=== PATIENT | female | born 1965 | race Caucasian/White ===

== ENCOUNTER 2018-06-17 23:46 | Emergency (ER) | payer OTHER ==
[2018-06-18] MEDS ORDERED: DUONEB 0.5-3 MG/3 ml Neb IH ONE ×2 (00:24→01:05)
--- NOTE | 2018-06-18 00:30 | ERPHSYRPT ---
- History of Present Illness Time Seen by Provider: 06/18/18 00:19 Source: patient Exam Limitations: no limitations Physician History: 53-year-old white female with history of fibromyalgia, neuropathy, peptic ulcers arrives with complaint of shortness of breath cough symptoms going on for 2 weeks worse the last couple of days denies any chest pain Patient states the cough is worse at night. Past medical history includes fibromyalgia, neuropathy, peptic ulcers Past surgical history includes cholecystectomy, , EGD Social history patient denies tobacco alcohol or illicit drug use Timing/Duration: week(s) (2 weeks) Activities at Onset: none Severity of Dyspnea-Max: mild Severity of Dyspnea-Current: mild Possible Cause: no prior episodes Modifying Factors: Improves With: nothing Associated Symptoms: constant, cough, wheezing, No intermittent, No anxiety, No chest pain/discomfort, No edema, No fever, No insomnia, No loss of appetite, No lightheadedness, No weakness, No ankle swelling, No chills, No hemoptysis, No calf pain, No dizziness, No heaviness, No heart racing, No lightheadedness, No leg swelling, No muscle spasms feet, No muscle spasms hands, No painful breathing, No productive cough, No sweating, No tightness, No tingling face International travel in last 2 weeks: No Allergies/Adverse Reactions: NSAIDS (Non-Steroidal Anti-Inflamma Allergy (Verified 06/18/18 00:56) Home Medications: Furosemide 40 mg [Lasix 40 MG] 40 mg PO DAILY 08/18/15 [History] Levothyroxine Sodium 75 Mcg [Synthroid 75 Mcg] 75 mcg PO DAILY 08/18/15 [ History] Lisdexamfetamine Dimesylate [Vyvanse] 50 mg PO DAILY 08/18/15 [History] Lisinopril 10 mg [Zestril 10 MG] 10 mg PO HS 08/18/15 [History] Tizanidine HCl 4 mg [Zanaflex 4 MG] 8 mg PO HS 08/18/15 [History] Oxycodone HCl/Acetaminophen [Percocet 7.5-325 mg Tablet] 1 each PO Q4-6HPRN PRN 10/10/15 [History] Acetaminophen 500 mg [Tylenol Extra Strength 500 mg] 1,000 mg PO Q4H 06/18 [History] Alprazolam [Xanax] 1 mg PO TID 06/18/18 [History] Hx Tetanus, Diphtheria Vaccination/Date Given: Yes Hx Influenza Vaccination/Date Given: No Hx Pneumococcal Vaccination/Date Given: No - Review of Systems Constitutional: No Symptoms, No Fever, No Chills Ears, Nose, & Throat: No Symptoms Respiratory: Cough, Wheezing, No Dyspnea Cardiac: No Chest Pain, No Edema, No Syncope Abdominal/Gastrointestinal: No Abdominal Pain, No Nausea, No Vomiting, No Diarrhea Genitourinary Symptoms: No Dysuria Musculoskeletal: No Back Pain, No Neck Pain Skin: No Rash Neurological: No Dizziness, No Focal Weakness, No Sensory Changes Psychological: No Symptoms Endocrine: No Symptoms All Other Systems: Reviewed and Negative (in he starts telling me thshe) - Past Medical History Pertinent Past Medical History: Yes (fibrolmyalgia, neuropathy, peptic ulcers) Neurological History: No Pertinent History ENT History: No Pertinent History Cardiac History: No Pertinent History Respiratory History: No Pertinent History Endocrine Medical History: No Pertinent History Musculoskeletal History: No Pertinent History GI Medical History: Ulcer History: No Pertinent History Psycho-Social History: No Pertinent History Female Reproductive Disorders: No Pertinent History Other Medical History: ulcer - Past Surgical History Past Surgical History: Yes Neuro Surgical History: No Pertinent History Cardiac: No Pertinent History Respiratory: No Pertinent History Gastrointestinal: Cholecystectomy Genitourinary: No Pertinent History Musculoskeletal: No Pertinent History Female Surgical History: Section Other Surgical History: EGD X [address] King Eduardo - Social History Smoking Status: Never smoker Exposure to second hand smoke: No Drug Use: none Patient Lives Alone: No - Nursing Vital Signs Nursing Vital Signs: Initial Vital Signs Temperature 98.5 F 06/18/18 00:04 Pulse Rate 96 H 06/18/18 00:04 Respiratory Rate 18 06/18/18 00:04 Blood Pressure 134/92 06/18/18 00:04 O2 Sat by Pulse Oximetry 96 06/18/18 00:04 Pain Scale Pain Intensity 0 - Physical Exam General Appearance: mild distress, alert Eye Exam: PERRL/EOMI Neck Exam: normal inspection, supple Respiratory Exam: diminished breath sounds, wheezing Cardiovascular/Chest Exam: normal heart sounds, regular rate/rhythm Abdominal/Gastrointestinal Exam: soft, No tenderness, No distention, No mass Extremity Exam: non-tender, normal range of motion, normal inspection, no calf tenderness, no pedal edema Neurologic Exam: alert, oriented x 3, cooperative, 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, sensation nml, No motor deficits Skin Exam: normal color, warm, No dry SpO2 Interpretation: normal (96%) SpO2: 96 - Course Nursing assessment & vital signs reviewed: Yes EKG Interpreted by Me: RATE (92 bpm), NORMAL AXIS, Other (EKG: Sinus rhythm, 92 bpm, normal axis, no acute ST or T wave changes) - Radiology Exams Chest X-ray Interpretation: Interpreted by me (Chest x-ray: No acute disease process) Ordered Tests: Active Orders 24 hr Category Date Time Status Clinical Resource Coordinator STAT Care 06/18/18 00:26 Active EKG-ER Only STAT Care 06/18/18 00:24 Active IV Insertion STAT Care 06/18/18 00:24 Active Pulse Oximetry (ED) STAT Care 06/18/18 00:24 Active CHEST 1 VIEW (PORTABLE) Stat Exams 06/18/18 00:26 Taken CBC W DIFF Stat Lab 06/18/18 00:45 Completed CMP Stat Lab 06/18/18 00:45 Completed HCG QUALITATIVE,SERUM Stat Lab 06/18/18 00:45 Completed NT PRO BNP Stat Lab 06/18/18 00:45 Completed TROPONIN Q3H Lab 06/18/18 00:45 Completed VENOUS BLOOD GAS Stat Lab 06/18/18 00:50 Completed Respiratory Therapy Assessment DAILY RT 06/18/18 01:06 Completed Medication Summary Discontinued Medications Generic Name Dose Route Start Last Admin Trade Name Mikq PRN Reason Stop Dose Admin Albuterol Sulfate Confirm 06/18/18 02:55 Ventolin Hfa Mdi Administered 06/18/18 02:56 Dose 8 gm IH .STK-MED ONE Albuterol/Ipratropium 3 ml 06/18/18 00:24 06/18/18 01:08 Duoneb 0.5-3 Mg/3 Ml Neb IH 06/18/18 00:25 3 ml STAT ONE Administration Albuterol/Ipratropium Confirm 06/18/18 01:05 Duoneb 0.5-3 Mg/3 Ml Neb Administered 06/18/18 01:06 Dose 3 ml IH .STK-MED ONE Ceftriaxone Sodium/Dextrose Confirm 06/18/18 03:09 Rocephin 1 Gm-D5w 50 Ml Bag Administered 06/18/18 03:10 Dose 1 g in 50 mls @ ud IV .STK-MED ONE Methylprednisolone Sodium Succinate Confirm 06/18/18 03:09 Solu-Medrol 125 Mg Administered 06/18/18 03:10 Dose 125 mg .ROUTE .STK-MED ONE Lab/Rad Data: Laboratory Result Diagrams 06/18/18 00:45 06/18/18 00:45 Laboratory Results 06/18/18 06/18/18 06/18/18 Range/Units 00:50 00:45 00:45 WBC (4.0-10.5) K/mm3 RBC (4.1-5.4) M/mm3 Hgb (12.0-16.0) gm/dl Hct (35-47) % MCV (78-100) fl MCH (26-32) pg MCHC (32-36) g/dl RDW (11.5-14.0) % Plt Count (150-450) K/mm3 MPV (6-9.5) fl Gran % (36.0-66.0) % Eos # (Auto) (0-0.5) Absolute Lymphs (auto) (1.0-4.6) Absolute Monos (auto) (0.0-1.3) Lymphocytes % (24.0-44.0) % Monocytes % (0.0-12.0) % Eosinophils % (0.00-5.0) % Basophils % (0.0-0.4) % Absolute Granulocytes (1.4-6.9) Basophils # (0-0.4) pO2/FiO2 Ratio 21.0 % VBG pH 7.37 (7.32-7.42) VBG pCO2 at Pat Temp 36 L (42-55) mm/Hg VBG pO2 at Pat Temp 61 H (25-40) mm/Hg VBG HCO3 20.8 L (22-28) meq/L VBG O2 Sat ([place]) 94.7 L (95-100) VBG Base Excess -4.0 L (-2.0-2.0) VBG Hemoglobin 10.9 VBG Carboxyhemoglobin 3.1 (0.0-6.9) % T HGB POC Potassium 3.3 L (3.5-5.1) Sodium (137-145) mmol/L Potassium (3.5-5.1) mmol/L Chloride (98-107) mmol/L Carbon Dioxide (22-30) mmol/L Anion Gap (5-15) MEQ/L BUN (7-17) mg/dL Creatinine (0.52-1.04) mg/dL Estimated GFR ML/MIN Glucose (74-106) mg/dL Calcium (8.4-10.2) mg/dL Total Bilirubin (0.2-1.3) mg/dL AST (14-36) U/L ALT (0-35) U/L Alkaline Phosphatase (38-126) U/L Troponin I < 0.012 (0.000-0.034) ng/mL NT-Pro-B Natriuret Pep (0-900) pg/mL Serum Total Protein (6.3-8.2) g/dL Albumin (3.5-5.0) g/dL Serum , Qual NEGATIVE (Negative) 06/18/18 06/18/18 Range/Units 00:45 00:45 WBC 14.6 H (4.0-10.5) K/mm3 RBC 3.47 L (4.1-5.4) M/mm3 Hgb 10.6 L (12.0-16.0) gm/dl Hct 33.3 L (35-47) % MCV 96.0 (78-100) fl MCH 30.5 (26-32) pg MCHC 31.8 L (32-36) g/dl RDW 13.9 (11.5-14.0) % Plt Count 343 (150-450) K/mm3 MPV 8.2 (6-9.5) fl Gran % 92.1 H (36.0-66.0) % Eos # (Auto) 0.01 (0-0.5) Absolute Lymphs (auto) 0.92 L (1.0-4.6) Absolute Monos (auto) 0.20 (0.0-1.3) Lymphocytes % 6.3 L (24.0-44.0) % Monocytes % 1.4 (0.0-12.0) % Eosinophils % 0.1 (0.00-5.0) % Basophils % 0.1 (0.0-0.4) % Absolute Granulocytes 13.47 H (1.4-6.9) Basophils # 0.02 (0-0.4) pO2/FiO2 Ratio % VBG pH (7.32-7.42) VBG pCO2 at Pat Temp (42-55) mm/Hg VBG pO2 at Pat Temp (25-40) mm/Hg VBG HCO3 (22-28) meq/L VBG O2 Sat ([place]) (95-100) VBG Base Excess (-2.0-2.0) VBG Hemoglobin VBG Carboxyhemoglobin (0.0-6.9) % T HGB POC Potassium (3.5-5.1) Sodium 130 L (137-145) mmol/L Potassium 3.5 (3.5-5.1) mmol/L Chloride 96 L (98-107) mmol/L Carbon Dioxide 22 (22-30) mmol/L Anion Gap 15.9 H (5-15) MEQ/L BUN 8 (7-17) mg/dL Creatinine 0.88 (0.52-1.04) mg/dL Estimated GFR > 60.0 ML/MIN Glucose 148 H (74-106) mg/dL Calcium 9.0 (8.4-10.2) mg/dL Total Bilirubin 0.70 (0.2-1.3) mg/dL AST 29 (14-36) U/L ALT 32 (0-35) U/L Alkaline Phosphatase 79 (38-126) U/L Troponin I (0.000-0.034) ng/mL NT-Pro-B Natriuret Pep 178 (0-900) pg/mL Serum Total Protein 7.7 (6.3-8.2) g/dL Albumin 4.4 (3.5-5.0) g/dL Serum , Qual (Negative) - Progress Progress: improved Air Movement: fair Progress Note: 06/18/18 04:22 53-year-old white female arrives with complaint of shortness of breath symptoms going on for approximately a week she states she has had a nonproductive cough patient arrived with wheezing. Patient with normal vitals on arrival. Patient was CBC white blood cell 14.6 hemoglobin 10.6 hematocrit 33.3 platelets 343 HCG was negative Chemistry was normal troponin was normal venous blood gases pH 7.37 PCO2 36 Patient was given IV normal saline, IV Solu-Medrol, IV Rocephin she was improved after DuoNeb treatment. Patient was given an albuterol inhaler to take home she was given a prescription for Zithromax and tapering prednisone. These were handwritten secondary to computer was down. Patient was advised to follow-up with her family doctor, Dr. Morgan, She is to return for acute distress or for severe symptoms, Antibiotics given: Yes - Departure Time of Disposition: 04:00 Departure Disposition: Home Clinical Impression: Bronchitis with bronchospasm, Shortness of breath Condition: Fair Critical Care Time: No Referrals: LORIN FREEMAN [Primary Care Provider] -
[2018-06-18 00:37] VITALS: BP 112/93
[2018-06-18 00:49] LABS: BASOPHIL % 0.1 % (0.0-0.4); Basophil (Absolute #) 0.02 (0-0.4); Eosinophil % 0.1 % (0.00-5.0); Eosinophil (Absolute #) 0.01 (0-0.5); Granulocyte Absolute (ANC) 13.47 (1.4-6.9); Granulocytes % 92.1 % (36.0-66.0); Hematocrit 33.3 % (35-47); Hemoglobin 10.6 gm/dl (12.0-16.0); Lymphocyte (Absolute #) 0.92 (1.0-4.6); Lymphocytes % 6.3 % (24.0-44.0); Mean Corpuscular Hemoglobin 30.5 pg (26-32); Mean Corpuscular Hgb Concent. 31.8 g/dl (32-36); Mean Platelet Volume 8.2 fl (6-9.5); Monocytes % 1.4 % (0.0-12.0); Platelet Count 343 K/mm3 (150-450); Red Blood Count 3.47 M/mm3 (4.1-5.4); Red Cell Distribution Width 13.9 % (11.5-14.0); White Blood Count 14.6 K/mm3 (4.0-10.5)
[2018-06-18 00:57] LABS: VBG CARBOXYHEMOGLOBIN 3.1 % T HGB (0.0-6.9); VBG HCO3- 20.8 meq/L (22-28); VBG HEMOGLOBIN 10.9; VBG O2 SATURATION 94.7 (95-100); VBG POTASSIUM 3.3 (3.5-5.1); VBG pH 7.37 (7.32-7.42)
[2018-06-18 01:06] VITALS: O2SAT 96
[2018-06-18 01:15] VITALS: PULSE 91
[2018-06-18 01:16] LABS: ALBUMIN 4.4 g/dL (3.5-5.0); ALKALINE PHOSPHATASE 79 U/L (38-126); ANION GAP 15.9 MEQ/L (5-15); BLOOD UREA NITROGEN 8 mg/dL (7-17); CHLORIDE 96 mmol/L (98-107); Carbon Dioxide 22 mmol/L (22-30); Creatinine 1 0.88 mg/dL (0.52-1.04); Glucose 148 mg/dL (74-106); NT PRO BNP 178 pg/mL (0-900); Potassium 3.5 mmol/L (3.5-5.1); SGOT/AST 29 U/L (14-36); SGPT/ALT 32 U/L (0-35); SODIUM 130 mmol/L (137-145); Total Protein 7.7 g/dL (6.3-8.2)
[2018-06-18] MEDS ORDERED: Ventolin Hfa MDI IH ONE (02:55)
[2018-06-18] MEDS ORDERED: solu-MEDROL 125 MG ONE (03:09)
[2018-06-18] MEDS ORDERED: ROCEPHIN 1 Gm-D5w 50 ml Bag** 1 G/50 ML IVPB IV ONE (03:09)
--- NOTE | 2018-06-18 08:39 | XRAY ---
Indication: Cough. Comparison: None Portable chest demonstrates normal heart and lungs. Bony thorax intact with mild degenerative changes.
== END 2018-06-18 04:00 | disposition home or self-care (01) ==
LOC: ED 23:46
DX: J40 Bronchitis, not specified as acute or chronic (principal); J98.01 Acute bronchospasm; M79.7 Fibromyalgia; G62.9 Polyneuropathy, unspecified; Z79.899 Other long term (current) drug therapy
CPT/HCPCS: 36000; 36415; 71045; 80053; 81025; 82805; 83880; 84484; 85025; 93005; 93041; 94640; 96365; 96372; 99284; J0696; J2930; A9270-GY

== ENCOUNTER 2019-09-19 18:29 | Observation (INO) | payer OTHER ==
[2019-09-19] MEDS ORDERED: Sodium Chloride 0.9% 1000 ML 1,000 ML IV STA (18:37)
--- NOTE | 2019-09-19 18:42 | ERPHSYRPT ---
- History of Present Illness Time Seen by Provider: 09/19/19 18:39 Source: patient Exam Limitations: no limitations Physician History: pt has chronic pain and ran out of fentanyl patches and was trying to wet some dried out ones to get them to work but absorbed the medicine by mouth rapidly and went into resp arrest. She was found by family and called EMS who revived her with 3 doses of narcan but required adn IO site for access. she is becoming more alert in ER and declares this an accident as above and not suicidal or trying to OD. Timing/Duration: today Severity: severe Associated Symptoms: denies symptoms Allergies/Adverse Reactions: NSAIDS (Non-Steroidal Anti-Inflamma Allergy (Verified 09/19/19 18:37) Home Medications: Furosemide 40 mg [Lasix 40 MG] 40 mg PO DAILY 08/18/15 [History] Levothyroxine Sodium 75 Mcg [Synthroid 75 Mcg] 75 mcg PO DAILY 08/18/15 [ History] Lisdexamfetamine Dimesylate [Vyvanse] 50 mg PO DAILY 08/18/15 [History] Lisinopril 10 mg [Zestril 10 MG] 10 mg PO HS 08/18/15 [History] Tizanidine HCl 4 mg [Zanaflex 4 MG] 8 mg PO HS 08/18/15 [History] Oxycodone HCl/Acetaminophen [Percocet 7.5-325 mg Tablet] 1 each PO Q4-6HPRN PRN 10/10/15 [History] Acetaminophen 500 mg [Tylenol Extra Strength 500 mg] 1,000 mg PO Q4H 06/18 [History] Alprazolam [Xanax] 1 mg PO TID 06/18/18 [History] Hx Tetanus, Diphtheria Vaccination/Date Given: Yes Hx Influenza Vaccination/Date Given: No Hx Pneumococcal Vaccination/Date Given: No - Review of Systems Constitutional: No Fever, No Chills Eyes: No Symptoms Ears, Nose, & Throat: No Symptoms Respiratory: No Cough, No Dyspnea Cardiac: No Chest Pain, No Edema, No Syncope Abdominal/Gastrointestinal: No Abdominal Pain, No Nausea, No Vomiting, No Diarrhea Genitourinary Symptoms: No Dysuria Musculoskeletal: No Back Pain, No Neck Pain Skin: No Rash Neurological: No Dizziness, No Focal Weakness, No Sensory Changes Psychological: No Symptoms Endocrine: No Symptoms Hematologic/Lymphatic: No Symptoms Immunological/Allergic: No Symptoms All Other Systems: Reviewed and Negative - Past Medical History Pertinent Past Medical History: Yes (fibrolmyalgia, neuropathy, peptic ulcers) Neurological History: No Pertinent History ENT History: No Pertinent History Cardiac History: No Pertinent History Respiratory History: No Pertinent History Endocrine Medical History: No Pertinent History Musculoskeletal History: No Pertinent History GI Medical History: Ulcer History: No Pertinent History Psycho-Social History: No Pertinent History Female Reproductive Disorders: No Pertinent History Other Medical History: ulcer - Past Surgical History Past Surgical History: Yes Neuro Surgical History: No Pertinent History Cardiac: No Pertinent History Respiratory: No Pertinent History Gastrointestinal: Cholecystectomy Genitourinary: No Pertinent History Musculoskeletal: No Pertinent History Female Surgical History: Section Other Surgical History: EGD X [address] King Eduardo - Social History Smoking Status: Never smoker Exposure to second hand smoke: No Drug Use: none Patient Lives Alone: No - Nursing Vital Signs Nursing Vital Signs: Initial Vital Signs Temperature 96.3 F 09/19/19 18:39 Pulse Rate 117 H 09/19/19 18:39 Respiratory Rate 24 09/19/19 18:39 Blood Pressure 129/98 09/19/19 18:39 O2 Sat by Pulse Oximetry 95 09/19/19 18:39 Pain Scale Pain Intensity 0 - Physical Exam General Appearance: no apparent distress, alert Eye Exam: PERRL/EOMI, eyes nml inspection Ears, Nose, Throat Exam: normal ENT inspection, TMs normal, pharynx normal, moist mucous membranes Neck Exam: normal inspection, non-tender, supple, full range of motion Respiratory Exam: normal breath sounds, lungs clear, No respiratory distress Cardiovascular Exam: regular rate/rhythm, normal heart sounds, normal peripheral pulses Gastrointestinal/Abdomen Exam: soft, normal bowel sounds, No tenderness, No mass Back Exam: normal inspection, normal range of motion, No CVA tenderness, No vertebral tenderness Extremity Exam: normal inspection, normal range of motion, pelvis stable Neurologic Exam: alert, oriented x 3, cooperative, normal mood/affect, nml cerebellar function, nml station & gait, sensation nml, No motor deficits Skin Exam: normal color, warm, dry, No rash Lymphatic Exam: No adenopathy - Course Nursing assessment & vital signs reviewed: Yes EKG Interpreted by Me: Sinus Tach, Non-specific ST Changes Ordered Tests: Active Orders 24 hr Category Date Time Status [employer] STAT Care 09/19/19 18:38 Active EKG-ER Only STAT Care 09/19/19 18:37 Active [place] [Catheter-[place]] STAT Care 09/19/19 18:55 Active IV Insertion STAT Care 09/19/19 18:37 Active IV Insertion-2nd Peripheral STAT Care 09/19/19 18:55 Active Oxygen-ED Only Nasal Cannula 2 lpm Care 09/19/19 19:45 Active ACETAMINOPHEN Stat Lab 09/19/19 18:45 Completed CBC W DIFF Stat Lab 09/19/19 18:45 Completed CMP Stat Lab 09/19/19 18:45 Completed ETHYL ALCOHOL Stat Lab 09/19/19 18:45 Completed HCG QUALITATIVE,SERUM Stat Lab 09/19/19 18:45 Completed Manual Differential NC Stat Lab 09/19/19 18:45 Completed SALICYLATE Stat Lab 09/19/19 18:45 Completed UA W/RFX UR CULTURE Stat Lab 09/19/19 18:45 Completed Urine Triage Profile Stat Lab 09/19/19 18:45 Completed Medication Summary Discontinued Medications Generic Name Dose Route Start Last Admin Trade Name Freq PRN Reason Stop Dose Admin Sodium Chloride 1,000 mls @ 999 mls/hr 09/19/19 18:37 09/19/19 19:55 Sodium Chloride 0.9% 1000 Ml IV 09/19/19 19:37 Infused .Q1H1M STA Infusion Sodium Chloride Confirm 09/19/19 18:53 Sodium Chloride 0.9% 1000 Ml Administered 09/19/19 18:54 Dose 1,000 mls @ ud .ROUTE .STK-MED ONE Ondansetron HCl Confirm 09/19/19 18:53 Zofran 4 Mg/2 Ml Vial Administered 09/19/19 18:54 Dose 4 mg .ROUTE .STK-MED ONE Ondansetron HCl 4 mg 09/19/19 18:58 09/19/19 19:05 Zofran 4 Mg/2 Ml Vial IV 09/19/19 18:59 4 mg STAT ONE Administration Lab/Rad Data: Laboratory Result Diagrams 09/19/19 18:45 09/19/19 18:45 Laboratory Results 05/24/20 05/24/20 05/24/20 Range/Units 18:45 18:45 18:45 WBC (4.0-10.5) K/mm3 RBC (4.1-5.4) M/mm3 Hgb (12.0-16.0) gm/dl Hct (35-47) % MCV (78-100) fl MCH (26-32) pg MCHC (32-36) g/dl RDW (11.5-14.0) % Plt Count (150-450) K/mm3 MPV (7.5-11.0) fl Sodium (137-145) mmol/L Potassium (3.5-5.1) mmol/L Chloride (98-107) mmol/L Carbon Dioxide (22-30) mmol/L Anion Gap (5-15) MEQ/L BUN (7-17) mg/dL Creatinine (0.52-1.04) mg/dL Estimated GFR ML/MIN Glucose (74-106) mg/dL Calcium (8.4-10.2) mg/dL Total Bilirubin (0.2-1.3) mg/dL AST (14-36) U/L ALT (0-35) U/L Alkaline Phosphatase (38-126) U/L Serum Total Protein (6.3-8.2) g/dL Albumin (3.5-5.0) g/dL Serum , Qual NEGATIVE (Negative) Urine Color STRAW (YELLOW) Urine Appearance CLEAR (CLEAR) Urine pH 6.0 (5-6) Ur Specific [place] 1.008 (1.005-1.025) Urine Protein 30 (Negative) Urine Ketones NEGATIVE (NEGATIVE) Urine Blood NEGATIVE (0-5) Clarence/ul Urine Nitrite NEGATIVE (NEGATIVE) Urine Bilirubin NEGATIVE (NEGATIVE) Urine Urobilinogen NEGATIVE (0-1) mg/dL Ur Leukocyte Esterase NEGATIVE (NEGATIVE) Urine WBC (Auto) NONE (0-5) /HPF Urine RBC (Auto) NONE (0-2) /HPF U Hyaline Cast (Auto) 3-5 (0-2) /LPF U Epithel Cells (Auto) NONE (FEW) /HPF Urine Bacteria (Auto) NONE (NEGATIVE) /HPF Urine Mucus (Auto) SLIGHT (NEGATIVE) /HPF Urine Culture Reflexed NO (NO) Urine Glucose 50 (NEGATIVE) mg/dL Salicylates (2-20) mg/dL Urine Opiates Level NEGATIVE (NEGATIVE) Ur Methadone NEGATIVE (NEGATIVE) Acetaminophen (10-30) ug/ml Urine Barbiturates NEGATIVE (NEGATIVE) Ur Phencyclidine (PCP) NEGATIVE (NEGATIVE) Urine Amphetamine NEGATIVE (NEGATIVE) U Benzodiazepine Level POSITIVE (NEGATIVE) Urine Cocaine NEGATIVE (NEGATIVE) Urine Marijuana (THC) NEGATIVE (NEGATIVE) Ethyl Alcohol (0-10) mg/dL 09/19/19 09/19/19 Range/Units 18:45 18:45 WBC 13.8 H (4.0-10.5) K/mm3 RBC 4.10 (4.1-5.4) M/mm3 Hgb 12.7 (12.0-16.0) gm/dl Hct 39.4 (35-47) % MCV 96.1 (78-100) fl MCH 31.0 (26-32) pg MCHC 32.2 (32-36) g/dl RDW 14.3 H (11.5-14.0) % Plt Count 416 (150-450) K/mm3 MPV 9.2 (7.5-11.0) fl Sodium 140 (137-145) mmol/L Potassium 3.9 (3.5-5.1) mmol/L Chloride 104 (98-107) mmol/L Carbon Dioxide 20 L (22-30) mmol/L Anion Gap 19.8 H (5-15) MEQ/L BUN 22 H (7-17) mg/dL Creatinine 0.97 (0.52-1.04) mg/dL Estimated GFR > 60.0 ML/MIN Glucose 325 H (74-106) mg/dL Calcium 8.8 (8.4-10.2) mg/dL Total Bilirubin 0.60 (0.2-1.3) mg/dL AST 197 H (14-36) U/L ALT 107 H (0-35) U/L Alkaline Phosphatase 112 (38-126) U/L Serum Total Protein 7.5 (6.3-8.2) g/dL Albumin 4.2 (3.5-5.0) g/dL Serum , Qual (Negative) Urine Color (YELLOW) Urine Appearance (CLEAR) Urine pH (5-6) Ur Specific [place] (1.005-1.025) Urine Protein (Negative) Urine Ketones (NEGATIVE) Urine Blood (0-5) Clarence/ul Urine Nitrite (NEGATIVE) Urine Bilirubin (NEGATIVE) Urine Urobilinogen (0-1) mg/dL Ur Leukocyte Esterase (NEGATIVE) Urine WBC (Auto) (0-5) /HPF Urine RBC (Auto) (0-2) /HPF U Hyaline Cast (Auto) (0-2) /LPF U Epithel Cells (Auto) (FEW) /HPF Urine Bacteria (Auto) (NEGATIVE) /HPF Urine Mucus (Auto) (NEGATIVE) /HPF Urine Culture Reflexed (NO) Urine Glucose (NEGATIVE) mg/dL Salicylates 1.0 L (2-20) mg/dL Urine Opiates Level (NEGATIVE) Ur Methadone (NEGATIVE) Acetaminophen 20 (10-30) ug/ml Urine Barbiturates (NEGATIVE) Ur Phencyclidine (PCP) (NEGATIVE) Urine Amphetamine (NEGATIVE) U Benzodiazepine Level (NEGATIVE) Urine Cocaine (NEGATIVE) Urine Marijuana (THC) (NEGATIVE) Ethyl Alcohol < 10 (0-10) mg/dL - Progress Progress: improved, re-examined Progress Note: 09/19/19 21:02 discussed with pt and Dr power and all agree best to place pt in for obs as rec by poison control and also will ask for telemental in am. 09/19/19 21:03 pt had 45 minutes critical care time due to altered mental status and requirment for continuous airway monitoring and pulse ox in case further intervention was required. Discussed with : [place] Will see patient in: hospital (observation) Counseled pt/family regarding: drug and/or alcohol abuse, lab results, diagnosis , need for follow-up - Departure Departure Disposition: Observation Clinical Impression: Opiate or related narcotic overdose Condition: Stable Critical Care Time: Yes Critical Care Time(excluding separately billable procedures): Critical 30-74 mins Referrals: LORIN FREEMAN [Primary Care Provider] -
[2019-09-19 18:51] LABS: Hematocrit 39.4 % (35-47); Hemoglobin 12.7 gm/dl (12.0-16.0); Mean Cell Volume 96.1 fl (78-100); Mean Corpuscular Hgb Concent. 32.2 g/dl (32-36); Mean Platelet Volume 9.2 fl (7.5-11.0); Platelet Count 416 K/mm3 (150-450); Red Cell Distribution Width 14.3 % (11.5-14.0); White Blood Count 13.8 K/mm3 (4.0-10.5)
[2019-09-19] MEDS ORDERED: Sodium Chloride 0.9% 1000 ML 1,000 ML ONE (18:53)
[2019-09-19] MEDS ORDERED: Zofran 4 MG/2 ML VIAL ONE (18:53)
[2019-09-19] MEDS ORDERED: Zofran 4 MG/2 ML VIAL IV ONE (18:58)
[2019-09-19 19:02] LABS: Appearance CLEAR (CLEAR); Bilirubin NEGATIVE (NEGATIVE); Blood NEGATIVE Ery/ul (0-5); Glucose 50 mg/dL (NEGATIVE); Ketones NEGATIVE (NEGATIVE); Leukocyte Esterase NEGATIVE (NEGATIVE); Mucus SLIGHT /HPF (NEGATIVE); Nitrite NEGATIVE (NEGATIVE); Protein,Urine Dip 30 (Negative); Specific Gravity 1.008 (1.005-1.025); Urobilinogen NEGATIVE mg/dL (0-1)
[2019-09-19 19:03] LABS: ACETAMINOPHEN 20 ug/ml (10-30); ALBUMIN 4.2 g/dL (3.5-5.0); ALKALINE PHOSPHATASE 112 U/L (38-126); ANION GAP 19.8 MEQ/L (5-15); BLOOD UREA NITROGEN 22 mg/dL (7-17); CHLORIDE 104 mmol/L (98-107); Calcium 8.8 mg/dL (8.4-10.2); Carbon Dioxide 20 mmol/L (22-30); Creatinine 1 0.97 mg/dL (0.52-1.04); Glucose 325 mg/dL (74-106); Potassium 3.9 mmol/L (3.5-5.1); SGOT/AST 197 U/L (14-36); SGPT/ALT 107 U/L (0-35); SODIUM 140 mmol/L (137-145); Total Protein 7.5 g/dL (6.3-8.2)
[2019-09-19 19:04] LABS: ETHYL ALCOHOL < 10 mg/dL (0-10)
[2019-09-19 19:14] LABS: Amphetamine,Urine NEGATIVE (NEGATIVE); Barbiturate,Urine NEGATIVE (NEGATIVE); Benzodiazepine,Urine POSITIVE (NEGATIVE); Cocaine,Urine NEGATIVE (NEGATIVE); Methadone,Urine NEGATIVE (NEGATIVE); Opiate,Urine NEGATIVE (NEGATIVE); PCP,Urine NEGATIVE (NEGATIVE); THC,Urine NEGATIVE (NEGATIVE)
[2019-09-19] MEDS ORDERED: Phenergan 25 MG INJ IM PRN (21:28)
[2019-09-19] MEDS ORDERED: Sodium Chloride 0.9% 1000 ML 1,000 ML IV SCH (21:28)
[2019-09-19] MEDS ORDERED: HUMULIN R SQ PRN (21:28)
[2019-09-19] MEDS ORDERED: Zofran 4 MG/2 ML VIAL IV PRN (21:28)
[2019-09-19 23:58] LABS: Lymphocytes 19 % (24-44); Monocyte 4 % (0.0-12.0); Neutrophils 77 % (36.0-66.0); Platelet Estimate NORMAL (NORMAL); Total Cells Counted 100
[2019-09-20] MEDS ORDERED: WATER IV ONE ×3 (01:25→08:00)
[2019-09-20] MEDS ORDERED: ACETADOTE IV ONE ×3 (01:25→08:00)
[2019-09-20] MEDS ORDERED: DEXTROSE IV ONE ×3 (01:25→08:00)
[2019-09-20] MEDS ORDERED: Dextrose 5%/Water IV Soln. 250 ML 250 ML IV ONE (01:51)
[2019-09-20] MEDS ORDERED: Acetadote IV 200 MG/ML IV ONE ×2 (01:59→02:33)
[2019-09-20] MEDS ORDERED: Mucomyst 200 MG/ML ONE (02:28)
[2019-09-20] MEDS ORDERED: Dextrose 5%/Water IV Soln. 500 ML 500 ML IV ONE (02:33)
[2019-09-20 04:57] LABS: Absolute Neutrophil Ct (ANC) 9.94 (1.4-6.9); Basophil (Absolute #) 0 (0-0.4); Eosinophil (Absolute #) 0 (0-0.5); Hemoglobin 11.1 gm/dl (12.0-16.0); Lymphocyte (Absolute #) 1.67 (1.0-4.6); Lymphocytes % 13.2 % (24.0-44.0); Mean Cell Volume 96.7 fl (78-100); Mean Corpuscular Hemoglobin 30.7 pg (26-32); Mean Corpuscular Hgb Concent. 31.7 g/dl (32-36); Monocyte (Absolute #) 1.04 (0.0-1.3); Monocytes % 8.2 % (0.0-12.0); Neutrophil % 78.6 % (36.0-66.0); Platelet Count 343 K/mm3 (150-450); Red Blood Count 3.62 M/mm3 (4.1-5.4); Red Cell Distribution Width 14.5 % (11.5-14.0); White Blood Count 12.7 K/mm3 (4.0-10.5)
[2019-09-20 05:20] LABS: ALBUMIN 3.8 g/dL (3.5-5.0); ALKALINE PHOSPHATASE 20 U/L (38-126); ANION GAP 14.3 MEQ/L (5-15); BLOOD UREA NITROGEN 16 mg/dL (7-17); CHLORIDE 102 mmol/L (98-107); Calcium 8.7 mg/dL (8.4-10.2); Carbon Dioxide 26 mmol/L (22-30); Glucose 136 mg/dL (74-106); Potassium 4.2 mmol/L (3.5-5.1); SGOT/AST 99 U/L (14-36); SGPT/ALT 120 U/L (0-35); SODIUM 137 mmol/L (137-145)
[2019-09-20] MEDS ORDERED: AZITHROMYCIN 500 MG PO SCH (11:45)
[2019-09-20] MEDS ORDERED: MEDICATION INTERVENTION PO SCH (12:00)
[2019-09-20] MEDS: SYNTHROID 75 MCG PO SCH ×2 (12:01→12:16)
[2019-09-20] MEDS: DELTASONE 10 MG PO SCH ×2 (12:01→12:11)
[2019-09-20] MEDS: Lasix 40 MG PO SCH ×2 (12:01→12:12)
[2019-09-20] MEDS: Zestril 5 MG PO SCH ×3 (12:01→21:17)
[2019-09-20] MEDS: CLARITIN 10 MG PO SCH (12:10)
[2019-09-20] MEDS ORDERED: MOTRIN 400 MG PO ONE (12:15)
[2019-09-20] MEDS: LYRICA 100MG PO SCH ×2 (12:26→21:16)
[2019-09-20] MEDS: Zithromax 250 MG TABLET PO SCH (12:26)
[2019-09-20] MEDS: XANAX 1 MG PO SCH ×3 (12:47→21:17)
[2019-09-20] MEDS: HYDROXYCHLOROQUINE SULFATE PO SCH ×2 (12:48→21:08)
[2019-09-20] MEDS: Protonix 40MG Tablet PO SCH (12:51)
--- NOTE | 2019-09-20 19:34 | PCM.SSS ---
History of Present Illness - Chief Complaint Chief Complaint: OD History of Present Illness: is a 54 year old female who suffers from fibromyalgia and neuropathy. 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 She was fired from her Pain management doctor in June([facility] in [place]) . She took an Fentanyl patch and tried to dissolve it in her mouth, family called EMS ,she required 3 dosed of Narcan and eventually woke up in ER. On Medsur she has been alert ,states she has had a recent counceling appt with Cleo Turner at [facility] and has a follow up the 1st week of September. - Review of Systems Constitutional: No Symptoms Eyes: No Symptoms Ears, Nose, & Throat: No Symptoms Respiratory: No Symptoms, Other (is finishing Zpk and Prednisone for bronchitis ,treated outpatient) Cardiac: No Symptoms Abdominal/Gastrointestinal: No Symptoms Genitourinary Symptoms: No Symptoms Musculoskeletal: Myalgias Skin: No Symptoms Neurological: Other (neuropathy) Psychological: Other (denies suicidal ideation) Endocrine: Other (hypothyroid takes Rx) Medications & Allergies Home Medications: Home Medication List Furosemide 40 mg [Lasix 40 MG] 40 mg PO DAILY 08/18/15 [History Confirmed 09/20/19] Levothyroxine Sodium 75 Mcg [Synthroid 75 Mcg] 75 mcg PO DAILY 08/18/15 [ History Confirmed 09/20/19] Lisdexamfetamine Dimesylate [Vyvanse] 50 mg PO DAILY 08/18/15 [History Confirmed 09/20/19] Tizanidine HCl 4 mg [Zanaflex 4 MG] 4 mg PO HS 08/18/15 [History Confirmed 09/20/19] Acetaminophen 500 mg [Tylenol Extra Strength 500 mg] 1,000 mg PO Q4H 06/18 [History Confirmed 09/20/19] Alprazolam [Xanax] 1 mg PO TID 06/18/18 [History Confirmed 09/20/19] Azithromycin [Zithromax Tri-Prosper] 500 mg PO UD 09/20/19 [History Confirmed ] Hydroxychloroquine Sulfate 200 mg PO BID 09/20/19 [History Confirmed 09/20/19] Lisinopril 5 mg [Zestril 5 MG] 5 mg PO Q12H 09/20/19 [History Confirmed ] Loratadine 1 tab PO DAILY 09/20/19 [History Confirmed 09/20/19] Milnacipran HCl [Savella] 12.5 mg PO BID 09/20/19 [History Confirmed 09/20/19] PANTOPRAZOLE 40 mg Tablet [Protonix 40MG Tablet] 40 mg PO QAM 09/20/19 [ History Confirmed 09/20/19] Prednisone 10 mg [Deltasone 10 mg] 10 mg PO DAILY 09/20/19 [History Confirmed 09/20/19] Pregabalin 100 mg PO BID 09/20/19 [History Confirmed 09/20/19] Simvastatin 10 mg PO HS 09/20/19 [History Confirmed 09/20/19] Allergies/Adverse Reactions: Allergies Allergy/AdvReac Type Severity Reaction Status Date / Time NSAIDS (Non-Steroidal Allergy Verified 09/19/19 18:37 Anti-Inflamma - Past Medical History Past Medical History: Yes (fibrolmyalgia, neuropathy, peptic ulcers) Neurological History: No Pertinent History ENT History: No Pertinent History Cardiac History: No Pertinent History Respiratory History: No Pertinent History Endocrine Medical History: No Pertinent History Musculoskelatal History: No Pertinent History GI Medical History: Ulcer History: No Pertinent History Pyscho-Social History: No Pertinent History Reproductive Disorders: No Pertinent History Comment: ulcer - Female History Are you now?: No - Past Surgical History Past Surgical History: Yes Neuro Surgical History: No Pertinent History Cardiac History: No Pertinent History Respiratory Surgery: No Pertinent History GI Surgical History: Cholecystectomy Genitourinary Surgical Hx: No Pertinent History Musculskeletal Surgical Hx: No Pertinent History Female Surgical History: Section Other Surgical History: EGD X [address] King Eduardo - Social History Smoking Status: Never smoker Exposure to second hand smoke: No Alcohol: None Drug Use: none - Physical Exam Vital Signs: Vital Signs - 24 hr Temp Pulse Resp BP Pulse Ox 09/20/19 16:00 97.6 F 76 18 128/71 94 L 09/20/19 10:27 93 L 09/20/19 07:42 120/89 09/20/19 07:38 97.6 F 89 17 137/80 93 L 09/20/19 05:55 97.7 F 94 H 18 123/74 98 09/20/19 04:00 97.6 F 70 18 115/71 99 09/20/19 01:48 97.6 F 70 18 115/71 99 09/20/19 00:00 98.1 F 89 18 127/76 98 09/19/19 23:03 89 17 100 09/19/19 21:59 95.7 F 80 20 133/93 99 09/19/19 21:06 95.7 F 80 20 133/93 99 09/19/19 19:41 96.3 F 88 18 108/74 91 L General Appearance: no apparent distress Neurologic Exam: alert, oriented x 3, normal mood/affect Eye Exam: PERRL/EOMI (no icterus) Ears, Nose, Throat Exam: normal ENT inspection, moist mucous membranes Neck Exam: normal inspection Respiratory Exam: normal breath sounds, lungs clear Cardiovascular Exam: regular rate/rhythm Gastrointestinal/Abdomen Exam: soft, normal bowel sounds (nontender) Back Exam: other (chronic muscle spasm,ropey paraspinal-moving about room painfree) Extremity Exam: normal inspection, other (no edema) Skin Exam: normal color, warm, dry Results - Labs Lab/Micro Results: Accuchecks Date 09/20/19 Date 09/20/19 Date 09/20/19 Date 09/19/19 Time 16:30 Time 11:30 Time 07:30 Time 22:00 Accucheck Value: 136 Accucheck Value: 127 Accucheck Value: 136 Lab Results-Last 24 Hours 09/19/19 09/19/19 09/20/19 Range/Units 18:45 22:00 04:25 WBC 12.7 H (4.0-10.5) K/mm3 RBC 3.62 L (4.1-5.4) M/mm3 Hgb 11.1 L (12.0-16.0) gm/dl Hct 35.0 (35-47) % MCV 96.7 (78-100) fl MCH 30.7 (26-32) pg MCHC 31.7 L (32-36) g/dl RDW 14.5 H (11.5-14.0) % Plt Count 343 (150-450) K/mm3 MPV 9.0 (7.5-11.0) fl Gran % 78.6 H (36.0-66.0) % Eos # (Auto) 0 (0-0.5) Absolute Lymphs (auto) 1.67 (1.0-4.6) Absolute Monos (auto) 1.04 (0.0-1.3) Lymphocytes % 13.2 L (24.0-44.0) % Monocytes % 8.2 (0.0-12.0) % Eosinophils % 0.0 (0.00-5.0) % Basophils % 0.0 (0.0-0.4) % Absolute Granulocytes 9.94 H (1.4-6.9) Segmented Neutrophils 77 H (36.0-66.0) % Lymphocytes (Manual) 19 L (24-44) % Monocytes (Manual) 4 (0.0-12.0) % Basophils # 0 (0-0.4) Platelet Estimate NORMAL (NORMAL) RBC Morphology NORMAL Sodium (137-145) mmol/L Potassium (3.5-5.1) mmol/L Chloride (98-107) mmol/L Carbon Dioxide (22-30) mmol/L Anion Gap (5-15) MEQ/L BUN (7-17) mg/dL Creatinine (0.52-1.04) mg/dL Estimated GFR ML/MIN Glucose (74-106) mg/dL Lactic Acid (0.4-2.0) Calcium (8.4-10.2) mg/dL Total Bilirubin (0.2-1.3) mg/dL AST (14-36) U/L ALT (0-35) U/L Alkaline Phosphatase (38-126) U/L Serum Total Protein (6.3-8.2) g/dL Albumin (3.5-5.0) g/dL Acetaminophen 20 (10-30) ug/ml 09/19/09/19/ Range/Units 04:25 04:59 WBC (4.0-10.5) K/mm3 RBC (4.1-5.4) M/mm3 Hgb (12.0-16.0) gm/dl Hct (35-47) % MCV (78-100) fl MCH (26-32) pg MCHC (32-36) g/dl RDW (11.5-14.0) % Plt Count (150-450) K/mm3 MPV (7.5-11.0) fl Gran % (36.0-66.0) % Eos # (Auto) (0-0.5) Absolute Lymphs (auto) (1.0-4.6) Absolute Monos (auto) (0.0-1.3) Lymphocytes % (24.0-44.0) % Monocytes % (0.0-12.0) % Eosinophils % (0.00-5.0) % Basophils % (0.0-0.4) % Absolute Granulocytes (1.4-6.9) Segmented Neutrophils (36.0-66.0) % Lymphocytes (Manual) (24-44) % Monocytes (Manual) (0.0-12.0) % Basophils # (0-0.4) Platelet Estimate (NORMAL) RBC Morphology Sodium 137 (137-145) mmol/L Potassium 4.2 (3.5-5.1) mmol/L Chloride 102 (98-107) mmol/L Carbon Dioxide 26 (22-30) mmol/L Anion Gap 14.3 (5-15) MEQ/L BUN 16 (7-17) mg/dL Creatinine 0.50 L (0.52-1.04) mg/dL Estimated GFR > 60.0 ML/MIN Glucose 136 H (74-106) mg/dL Lactic Acid 1.2 (0.4-2.0) Calcium 8.7 (8.4-10.2) mg/dL Total Bilirubin 0.30 (0.2-1.3) mg/dL AST 99 H (14-36) U/L ALT 120 H (0-35) U/L Alkaline Phosphatase 20 L (38-126) U/L Serum Total Protein 7.0 (6.3-8.2) g/dL Albumin 3.8 (3.5-5.0) g/dL Acetaminophen (10-30) ug/ml Accuchecks Date 09/20/19 Date 09/20/19 Date 09/20/19 Date 09/19/19 Time 16:30 Time 11:30 Time 07:30 Time 22:00 Accucheck Value: 136 Accucheck Value: 127 Accucheck Value: 136 - Other Procedures and Tests Respiratory Therapy 09/19/19 23:02 Oxygen Nasal Cannula 2 lpm Assessment/Plan (1) Opiate or related narcotic overdose Current Visit: Yes Status: Acute Qualifiers: Injury intent: accidental or unintentional Assessment & Plan: [facility] eval waiting on transfer,patient is questioning need for transfer - awaiting call back from [facility] [employer] DRIVER who did the [facility] eval today. Code(s): T40.601A - POISONING BY UNSP NARCOTICS, ACCIDENTAL, INIT (2) Fibromyalgia Current Visit: Yes Status: Chronic (3) Neuropathy Current Visit: Yes Status: Chronic Assessment & Plan: was followed by pain management but fired JUNE 2019 Code(s): G62.9 - POLYNEUROPATHY, UNSPECIFIED (4) Accidental acetaminophen overdose Current Visit: Yes Status: Acute Assessment & Plan: orders per poison control - receiving IV Acetadote to prevent liver damage from elevated tylenol levels and after 2nd bag her levels were low enough that Poison control stopped tx, (did not need third bag) Code(s): T39.1X1A - POISONING BY 4-AMINOPHENOL DERIVATIVES, ACCIDENTAL, INIT (5) HTN (hypertension) Current Visit: Yes Status: Chronic Qualifiers: Hypertension type: essential hypertension Qualified Code(s): I10 - Essential (primary) hypertension Assessment & Plan: controled on med Code(s): I10 - ESSENTIAL (PRIMARY) HYPERTENSION (6) Bronchitis Current Visit: Yes Status: Resolved Assessment & Plan: no symptoms on admission ,finishing Zpk and predisone as prescribed prior to admission. Code(s): J40 - BRONCHITIS, NOT SPECIFIED ACUTE OR CHRONIC (7) Anxiety Current Visit: Yes Status: Chronic Assessment & Plan: is on Xanax 1mg from outside provider,continued same dose,will need assessed by Psychiatrist on transfer Code(s): F41.9 - ANXIETY DISORDER, UNSPECIFIED Hospital Summary - Hospital Course Hospital Course: Patient was admitted for OBS awaiting Psych bed after accidental Opiate OD. She received 3 dosed of Narcan and was fully alert and oriented while on Medsurg but is questioning need for Psych admission. Liver enz and Acetomenaphin levels were elevated elevated,treated with IV Acetadote per poison control protocol. After 2nd bag of Acetadote liver levels were low enough to stop Acetadote Tx. Patient has chronic anxiety and was continued on Xanax 1mg tid this admission ,will need Psychiatrist to manage upon discharge. Hx recent bronchitis on Zpack at time of asmission but exam negative -continues Zpk and prednisone to complete her course. Awaiting call back from [facility] to discuss patient options. - Vitals & Intake/Output Vital Signs: Vital Signs Temperature 97.6 F 09/20/19 16:00 Pulse Rate 76 09/20/19 16:00 Respiratory Rate 18 09/20/19 16:00 Blood Pressure 128/71 09/20/19 16:00 O2 Sat by Pulse Oximetry 94 L 09/20/19 16:00 Intake & Output: Intake & Output 09/18/19 09/19/19 09/20/19 09/21/19 11:59 11:59 11:59 11:59 Intake Total 4726 2252 Output Total 7078 1800 Balance -6084 452 Weight 96.6 kg - Lab Result Diagrams: 09/20/19 04:25 09/20/19 23:50 Lab Results-Last 24 Hrs: Accuchecks Date 09/20/19 Date 09/20/19 Date 09/20/19 Date 09/19/19 Time 16:30 Time 11:30 Time 07:30 Time 22:00 Accucheck Value: 136 Accucheck Value: 127 Accucheck Value: 136 Lab Results-Last 24 Hours 09/19/19 09/19/19 09/20/19 Range/Units 18:45 22:00 04:25 WBC 12.7 H (4.0-10.5) K/mm3 RBC 3.62 L (4.1-5.4) M/mm3 Hgb 11.1 L (12.0-16.0) gm/dl Hct 35.0 (35-47) % MCV 96.7 (78-100) fl MCH 30.7 (26-32) pg MCHC 31.7 L (32-36) g/dl RDW 14.5 H (11.5-14.0) % Plt Count 343 (150-450) K/mm3 MPV 9.0 (7.5-11.0) fl Gran % 78.6 H (36.0-66.0) % Eos # (Auto) 0 (0-0.5) Absolute Lymphs (auto) 1.67 (1.0-4.6) Absolute Monos (auto) 1.04 (0.0-1.3) Lymphocytes % 13.2 L (24.0-44.0) % Monocytes % 8.2 (0.0-12.0) % Eosinophils % 0.0 (0.00-5.0) % Basophils % 0.0 (0.0-0.4) % Absolute Granulocytes 9.94 H (1.4-6.9) Segmented Neutrophils 77 H (36.0-66.0) % Lymphocytes (Manual) 19 L (24-44) % Monocytes (Manual) 4 (0.0-12.0) % Basophils # 0 (0-0.4) Platelet Estimate NORMAL (NORMAL) RBC Morphology NORMAL Sodium (137-145) mmol/L Potassium (3.5-5.1) mmol/L Chloride (98-107) mmol/L Carbon Dioxide (22-30) mmol/L Anion Gap (5-15) MEQ/L BUN (7-17) mg/dL Creatinine (0.52-1.04) mg/dL Estimated GFR ML/MIN Glucose (74-106) mg/dL Lactic Acid (0.4-2.0) Calcium (8.4-10.2) mg/dL Total Bilirubin (0.2-1.3) mg/dL AST (14-36) U/L ALT (0-35) U/L Alkaline Phosphatase (38-126) U/L Serum Total Protein (6.3-8.2) g/dL Albumin (3.5-5.0) g/dL Acetaminophen 20 (10-30) ug/ml //20 05/25/20 Range/Units 04:25 04:59 WBC (4.0-10.5) K/mm3 RBC (4.1-5.4) M/mm3 Hgb (12.0-16.0) gm/dl Hct (35-47) % MCV (78-100) fl MCH (26-32) pg MCHC (32-36) g/dl RDW (11.5-14.0) % Plt Count (150-450) K/mm3 MPV (7.5-11.0) fl Gran % (36.0-66.0) % Eos # (Auto) (0-0.5) Absolute Lymphs (auto) (1.0-4.6) Absolute Monos (auto) (0.0-1.3) Lymphocytes % (24.0-44.0) % Monocytes % (0.0-12.0) % Eosinophils % (0.00-5.0) % Basophils % (0.0-0.4) % Absolute Granulocytes (1.4-6.9) Segmented Neutrophils (36.0-66.0) % Lymphocytes (Manual) (24-44) % Monocytes (Manual) (0.0-12.0) % Basophils # (0-0.4) Platelet Estimate (NORMAL) RBC Morphology Sodium 137 (137-145) mmol/L Potassium 4.2 (3.5-5.1) mmol/L Chloride 102 (98-107) mmol/L Carbon Dioxide 26 (22-30) mmol/L Anion Gap 14.3 (5-15) MEQ/L BUN 16 (7-17) mg/dL Creatinine 0.50 L (0.52-1.04) mg/dL Estimated GFR > 60.0 ML/MIN Glucose 136 H (74-106) mg/dL Lactic Acid 1.2 (0.4-2.0) Calcium 8.7 (8.4-10.2) mg/dL Total Bilirubin 0.30 (0.2-1.3) mg/dL AST 99 H (14-36) U/L ALT 120 H (0-35) U/L Alkaline Phosphatase 20 L (38-126) U/L Serum Total Protein 7.0 (6.3-8.2) g/dL Albumin 3.8 (3.5-5.0) g/dL Acetaminophen (10-30) ug/ml Micro Results-Entire Visit: Accuchecks Date 09/20/19 Date 09/20/19 Date 09/20/19 Date 09/19/19 Time 16:30 Time 11:30 Time 07:30 Time 22:00 Accucheck Value: 136 Accucheck Value: 127 Accucheck Value: 136 - Procedures and Test Procedures and Tests throughout Hospitalization: Therapy Orders & Screens 09/19/19 21:28 Respiratory Therapy Consult ROUTINE Comment: Reason For Exam: 09/19/19 23:02 Oxygen Nasal Cannula 2 lpm Comment: Diagnosis: OD - Discharge Disposition: Home, Self-Care Condition: Stable Prescriptions: No Action Tizanidine HCl 4 mg [Zanaflex 4 MG] 4 mg PO HS Lisdexamfetamine Dimesylate [Vyvanse] 50 mg PO DAILY Levothyroxine Sodium 75 Mcg [Synthroid 75 Mcg] 75 mcg PO DAILY Furosemide 40 mg [Lasix 40 MG] 40 mg PO DAILY Acetaminophen 500 mg [Tylenol Extra Strength 500 mg] 1,000 mg PO Q4H Alprazolam [Xanax] 1 mg PO TID PANTOPRAZOLE 40 mg Tablet [Protonix 40MG Tablet] 40 mg PO QAM Simvastatin 10 mg PO HS Pregabalin 100 mg PO BID Hydroxychloroquine Sulfate 200 mg PO BID Milnacipran HCl [Savella] 12.5 mg PO BID Loratadine 1 tab PO DAILY Lisinopril 5 mg [Zestril 5 MG] 5 mg PO Q12H Prednisone 10 mg [Deltasone 10 mg] 10 mg PO DAILY Azithromycin [Zithromax Tri-Prosper] 500 mg PO UD Follow up with: LORIN FREEMAN [Primary Care Provider] - 1 Week
[2019-09-20] MEDS ORDERED: Zocor 10MG PO SCH (22:00)
[2019-09-20] MEDS ORDERED: Zanaflex 4 MG PO SCH (22:00)
[2019-09-20] MEDS ORDERED: MILNACIPRAN HCL PO SCH (22:00)
[2019-09-21 00:33] LABS: INR 1.02 (0.8-3.0); PROTIME 11.5 SECONDS (9.95-12.35)
[2019-09-21 00:37] LABS: ALKALINE PHOSPHATASE 96 U/L (38-126); ANION GAP 12.7 MEQ/L (5-15); BLOOD UREA NITROGEN 19 mg/dL (7-17); CHLORIDE 99 mmol/L (98-107); Calcium 9.5 mg/dL (8.4-10.2); Carbon Dioxide 31 mmol/L (22-30); Creatinine 1 0.64 mg/dL (0.52-1.04); Glucose 119 mg/dL (74-106); Potassium 4.1 mmol/L (3.5-5.1); SGOT/AST 49 U/L (14-36); SGPT/ALT 92 U/L (0-35); SODIUM 138 mmol/L (137-145); Total Protein 7.6 g/dL (6.3-8.2)
[2019-09-21 00:49] LABS: ACETAMINOPHEN < 10 ug/ml (10-30)
--- NOTE | 2019-09-21 08:49 | PCM.DS ---
Discharge Summary Date of Admission: 09/19/19 21:24 Admitting Physician: JACKELINE GARCIA DO Consults: Consults on Case 09/19/19 21:28 Tele-Health Consult ROUTINE 09/21/19 08:07 Consult,Nidia [Psychiatric Consult] STAT Primary Care Provider: LORIN FREEMAN Allergies Allergies No Known Drug Allergies Allergy (Unverified 09/21/19 08:21) Hospital Summary - Hospital Course Hospital Course: Pt is 54 yo female with fibromyalgia and neuropathy who was admitted through ER with fentanyl overdose. She had been terminated from pain mgmt in [place] in June. She found several fentanyl patches and ingested them orally; she was found down by family apparently who had to do CPR on her; she was given 3 doses of narcan. [facility] evaluated pt yesterday, thank you, and recommended inpatient treatment. Pt says she wasn't trying to "do anything," denies depression or anxiety. Says she thought the patches were so old they basically didn't have much medicine in them. She says the counselor from [facility] that evaluated her didn't really talk to her long or about the fentanyl. I have asked the RN if [facility] could talk to pt again - however I have filled out paperwork to do an Emergency Longterm as I feel their initial assessment and recommendation of inpatient stay is the best plan. The pt has zero insight into her situation and I believe would be a danger to herself if she were to discharge to home at this time. - Vitals & Intake/Output Vital Signs: Vital Signs Temperature 97.5 F 09/21/19 07:25 Pulse Rate 88 09/21/19 07:25 Respiratory Rate 18 09/21/19 07:25 Blood Pressure 121/53 09/21/19 07:25 O2 Sat by Pulse Oximetry 95 09/21/19 07:25 Intake & Output: Intake & Output 09/18/19 09/19/19 09/20/19 09/21/19 11:59 11:59 11:59 11:59 Intake Total 4776 4604 Output Total 7060 1800 Balance -1955 2804 Weight 96.6 kg 96 kg - Lab Result Diagrams: 09/20/19 04:25 09/20/19 23:50 Lab Results-Last 24 Hrs: Accuchecks Date 09/21/19 Date 09/20/19 Date 09/20/19 Time 07:30 Time 16:30 Time 11:30 Accucheck Value: 119 Accucheck Value: 117 Accucheck Value: 136 Accucheck Value: 127 Lab Results-Last 24 Hours 09/20/19 09/20/19 Range/Units 23:50 23:50 PT 11.5 (9.95-12.35) SECONDS INR 1.02 (0.8-3.0) Sodium 138 (137-145) mmol/L Potassium 4.1 (3.5-5.1) mmol/L Chloride 99 (98-107) mmol/L Carbon Dioxide 31 H (22-30) mmol/L Anion Gap 12.7 (5-15) MEQ/L BUN 19 H (7-17) mg/dL Creatinine 0.64 (0.52-1.04) mg/dL Estimated GFR > 60.0 ML/MIN Glucose 119 H (74-106) mg/dL Calcium 9.5 (8.4-10.2) mg/dL Total Bilirubin 0.40 (0.2-1.3) mg/dL AST 49 H (14-36) U/L ALT 92 H (0-35) U/L Alkaline Phosphatase 96 (38-126) U/L Serum Total Protein 7.6 (6.3-8.2) g/dL Albumin 4.0 (3.5-5.0) g/dL Acetaminophen < 10 L (10-30) ug/ml Micro Results-Entire Visit: Accuchecks Date 09/21/19 Date 09/20/19 Date 09/20/19 Time 07:30 Time 16:30 Time 11:30 Accucheck Value: 119 Accucheck Value: 117 Accucheck Value: 136 Accucheck Value: 127 - Procedures and Test Procedures and Tests throughout Hospitalization: Therapy Orders & Screens 09/19/19 21:28 Respiratory Therapy Consult ROUTINE Comment: Reason For Exam: 09/19/19 23:02 Oxygen Nasal Cannula 2 lpm Comment: Diagnosis: OD Discharge Exam General Appearance: no apparent distress, alert Neurologic Exam: oriented x 3, cooperative, other (decreased affect) Ears, Nose, Throat Exam: moist mucous membranes Neck Exam: normal inspection Respiratory Exam: normal breath sounds, lungs clear, No crackles/rales, No rhonchi, No wheezing Cardiovascular Exam: regular rate/rhythm, normal heart sounds, No murmur Gastrointestinal/Abdomen Exam: soft, normal bowel sounds, No tenderness, No distention, No mass, No guarding, No rebound Back Exam: normal inspection, No rash Extremity Exam: normal inspection, No pedal edema, No swelling Skin Exam: normal color, warm, dry, No rash Final Diagnosis/Problem List - Final Discharge Diagnosis/Problem (1) Opiate or related narcotic overdose Current Visit: Yes Status: Acute Assessment & Plan: Fentanyl overdose, very serious and could have resulted easily in patient's . She will need inpatient care; is now cleared medically. I have filled out forms for ID if pt refuses to go. Code(s): T40.601A - POISONING BY UNSP NARCOTICS, ACCIDENTAL, INIT (2) Anxiety Current Visit: Yes Status: Chronic Assessment & Plan: Has a xanax rx, will need to f/u with psychiatry. Code(s): F41.9 - ANXIETY DISORDER, UNSPECIFIED (3) Fibromyalgia Current Visit: Yes Status: Chronic (4) HTN (hypertension) Current Visit: Yes Status: Chronic Code(s): I10 - ESSENTIAL (PRIMARY) HYPERTENSION (5) Neuropathy Current Visit: Yes Status: Chronic Code(s): G62.9 - POLYNEUROPATHY, UNSPECIFIED (6) Bronchitis Current Visit: Yes Status: Resolved Assessment & Plan: apparently finishing zpack and steroid. Lungs clear and no sx displayed for me. Code(s): J40 - BRONCHITIS, NOT SPECIFIED ACUTE OR CHRONIC (7) Accidental acetaminophen overdose Current Visit: Yes Status: Acute Assessment & Plan: Liver enzymes are decreasing, nearly back to normal. Was treated with mucomyst. Code(s): T39.1X1A - POISONING BY 4-AMINOPHENOL DERIVATIVES, ACCIDENTAL, INIT - Discharge Disposition: Home, Self-Care Condition: Stable Prescriptions: No Action Tizanidine HCl 4 mg [Zanaflex 4 MG] 4 mg PO HS Lisdexamfetamine Dimesylate [Vyvanse] 50 mg PO DAILY Levothyroxine Sodium 75 Mcg [Synthroid 75 Mcg] 75 mcg PO DAILY Furosemide 40 mg [Lasix 40 MG] 40 mg PO DAILY Acetaminophen 500 mg [Tylenol Extra Strength 500 mg] 1,000 mg PO Q4H Alprazolam [Xanax] 1 mg PO TID PANTOPRAZOLE 40 mg Tablet [Protonix 40MG Tablet] 40 mg PO QAM Simvastatin 10 mg PO HS Pregabalin 100 mg PO BID Hydroxychloroquine Sulfate 200 mg PO BID Milnacipran HCl [Savella] 12.5 mg PO BID Loratadine 1 tab PO DAILY Lisinopril 5 mg [Zestril 5 MG] 5 mg PO Q12H Prednisone 10 mg [Deltasone 10 mg] 10 mg PO DAILY Azithromycin [Zithromax Tri-Prosper] 500 mg PO UD Follow up with: LORIN FREEMAN [Primary Care Provider] - 1 Week
[2019-09-21] MEDS ORDERED: MOTRIN 600 MG PO ONE (08:52)
[2019-09-21] MEDS: CLARITIN 10 MG PO SCH (09:12)
[2019-09-21] MEDS: HYDROXYCHLOROQUINE SULFATE PO SCH (09:13)
[2019-09-21] MEDS: DELTASONE 10 MG PO SCH (09:13)
[2019-09-21] MEDS: SYNTHROID 75 MCG PO SCH (09:14)
[2019-09-21] MEDS: Protonix 40MG Tablet PO SCH (09:14)
[2019-09-21] MEDS: Zestril 5 MG PO SCH (09:14)
[2019-09-21] MEDS: LYRICA 100MG PO SCH (09:14)
[2019-09-21] MEDS: XANAX 1 MG PO SCH ×2 (09:14→13:49)
[2019-09-21] MEDS: Zithromax 250 MG TABLET PO SCH (09:15)
[2019-09-21] MEDS: Lasix 40 MG PO SCH (09:20)
[2019-09-21] MEDS ORDERED: Protonix 20MG Tablet PO SCH (10:00)
[2019-09-21 13:28] VITALS: BP 104/60; PULSE 95; O2SAT 91
== END 2019-09-21 14:25 | disposition critical access hospital (66) ==
LOC: ED 18:29 → MED SURG 21:24
PROVIDERS: ADMIT Family Medicine; ATTEND Family Medicine
DX: T40.4X1A Poisoning by other synthetic narcotics, accidental (unintentional), initial encounter (principal); T39.1X1A Poisoning by 4-Aminophenol derivatives, accidental (unintentional), initial encounter; F41.9 Anxiety disorder, unspecified; M79.7 Fibromyalgia; I10 Essential (primary) hypertension; G62.9 Polyneuropathy, unspecified; J40 Bronchitis, not specified as acute or chronic; E03.9 Hypothyroidism, unspecified; Z79.899 Other long term (current) drug therapy
CPT/HCPCS: 36415; 51702; 80053; 80307; 81001; 81025; 82962; 83036; 83605; 85025; 85610; 90791; 93005; 93041; 93268; 94762; 96360; 96374; 99291; G0378; G0480; G0481; Q3014; 36000; 99285; J0132; J2405; A9270-GY

== ENCOUNTER 2021-03-18 17:33 | Emergency (ER) | payer OTHER ==
[2021-03-18] MEDS ORDERED: MORPHINE SULFATE 4 MG INJ ONE ×2 (18:23→20:50)
[2021-03-18] MEDS ORDERED: Zofran 4 MG/2 ML VIAL ONE (18:23)
[2021-03-18] MEDS ORDERED: Sodium Chloride 0.9% 1000 ML 1,000 ML ONE (18:23)
[2021-03-18] MEDS: Zofran 4 MG/2 ML VIAL IV ONE (18:25)
[2021-03-18] MEDS: Sodium Chloride 0.9% 1000 ML 1,000 ML IV STA (18:25)
[2021-03-18] MEDS: MORPHINE SULFATE 4 MG INJ IV ONE ×2 (18:25→20:51)
[2021-03-18 18:42] LABS: Absolute Neutrophil Ct (ANC) 8.01 (1.4-6.9); BASOPHIL % 0.1 % (0.0-0.4); Basophil (Absolute #) 0.01 (0-0.4); Eosinophil % 0.8 % (0.00-5.0); Eosinophil (Absolute #) 0.08 (0-0.5); Hematocrit 35.6 % (35-47); Hemoglobin 11.1 gm/dl (12.0-16.0); Lymphocyte (Absolute #) 1.25 (1.0-4.6); Lymphocytes % 12.6 % (24.0-44.0); Mean Cell Volume 99.2 fl (78-100); Mean Corpuscular Hemoglobin 30.9 pg (26-32); Mean Corpuscular Hgb Concent. 31.2 g/dl (32-36); Mean Platelet Volume 9.2 fl (7.5-11.0); Neutrophil % 80.5 % (36.0-66.0); Platelet Count 274 K/mm3 (150-450); Red Blood Count 3.59 M/mm3 (4.1-5.4); Red Cell Distribution Width 12.5 % (11.5-14.0)
[2021-03-18 18:45] LABS: Appearance CLOUDY (CLEAR); Bilirubin NEGATIVE (NEGATIVE); Blood SMALL Ery/ul (0-5); Epithelial Cells MANY /HPF (FEW); Glucose NEGATIVE (NEGATIVE); Ketones NEGATIVE (NEGATIVE); Leukocyte Esterase LARGE (NEGATIVE); Mucus SLIGHT /HPF (NEGATIVE); Nitrite NEGATIVE (NEGATIVE); Protein,Urine Dip 30 (Negative); Specific Gravity 1.016 (1.005-1.025); Urobilinogen NEGATIVE mg/dL (0-1); WBC 51-100 /HPF (0-5)
[2021-03-18 18:46] LABS: Bacteria FEW /HPF (NEGATIVE)
--- NOTE | 2021-03-18 18:54 | ERPHSYRPT ---
- History of Present Illness Historian: patient Exam Limitations: no limitations Patient Subjective Stated Complaint: lower abd pain x 1 days Triage Nursing Assessment: pt to ED c/o lower abd pain 9/10 sharp and constant that started yesterday morning. recent diarrhea, no urinary issues reported. nausea without emesis. tender to palp. hx cholecystectomy. only relief resting laying down in bed without movement. Timing/Duration: yesterday, constant, gradual onset, worse Activities at Onset: rest Quality: sharpness Abdominal Pain Onset Location: RLQ, LLQ, periumbilical, suprapubic Pain Radiation: no radiation Severity of Pain-Max: severe Severity of Pain-Current: severe Modifying Factors: Improves With: nothing Associated Symptoms: diarrhea Hx Tetanus, Diphtheria Vaccination/Date Given: Yes Hx Influenza Vaccination/Date Given: No Hx Pneumococcal Vaccination/Date Given: No Immunizations Up to Date: No <BRANDI DRUMMOND - Last Filed: 03/18/21 18:52> <DARRYL NOLASCO - Last Filed: 03/18/21 21:07> - History of Present Illness Time Seen by Provider: 03/18/21 18:51 Physician History: 55 years old female presented in the ER with chief complaint of lower abdominal pains since yesterday morning, constant, moderate to severe intensity sharp nature, without any significant aggravating or relieving factors, this morning started to have loose stool without hematochezia. No fever or chills reported. Denies any urinary symptoms. (BRANDI DRUMMOND) Allergies/Adverse Reactions: No Known Drug Allergies Allergy (Verified 03/18/21 18:11) Home Medications: Furosemide 40 mg [Lasix 40 MG] 40 mg PO DAILY 08/18/15 [History] Levothyroxine Sodium 75 Mcg [Synthroid 75 Mcg] 75 mcg PO DAILY 08/18/15 [History] Lisdexamfetamine Dimesylate [Vyvanse] 50 mg PO DAILY 08/18/15 [History] Tizanidine HCl 4 mg [Zanaflex 4 MG] 4 mg PO HS 08/18/15 [History] Acetaminophen 500 mg [Tylenol Extra Strength 500 mg] 1,000 mg PO DAILY PRN PRN 06/18/18 [History] Alprazolam [Xanax] 1 mg PO TID 06/18/18 [History] Hydroxychloroquine Sulfate 200 mg PO BID 09/20/19 [History] Lisinopril 5 mg [Zestril 5 MG] 20 mg PO HS 09/20/19 [History] Loratadine 1 tab PO DAILY PRN PRN 09/20/19 [History] Milnacipran HCl [Savella] 12.5 mg PO BID 09/20/19 [History] PANTOPRAZOLE 40 mg Tablet [Protonix 40MG Tablet] 40 mg PO QAM 09/20/19 [History] Pregabalin 100 mg PO BID 09/20/19 [History] Simvastatin 10 mg PO HS 09/20/19 [History] Travel Risk - International Travel Have you traveled outside of the country in past 3 weeks: No - Coronavirus Screening Are you exhibiting any of the following symptoms?: Yes Symptoms: Vomiting/Diarrhea Close contact with a COVID-19 positive Pt in past 14-21 Days: No - Vaccine Status Have you recieved a Covid-19 vaccination: Yes Fruit Sprayer: Moderna - Vaccination Dates Date of 2cond Vaccination (if applicable): may <BRANDI DRUMMOND - Last Filed: 03/18/21 18:52> - Review of Systems Constitutional: No Symptoms Eyes: No Symptoms Ears, Nose, & Throat: No Symptoms Respiratory: No Symptoms Cardiac: No Symptoms Abdominal/Gastrointestinal: Abdominal Pain, Diarrhea Genitourinary Symptoms: No Symptoms Musculoskeletal: No Symptoms Skin: No Symptoms Neurological: No Symptoms Psychological: No Symptoms Endocrine: No Symptoms Hematologic/Lymphatic: No Symptoms Immunological/Allergic: No Symptoms <BRANDI DRUMMOND - Last Filed: 03/18/21 18:52> - Past Medical History Pertinent Past Medical History: Yes (fibrolmyalgia, neuropathy, peptic ulcers) Neurological History: No Pertinent History ENT History: No Pertinent History Cardiac History: No Pertinent History Respiratory History: No Pertinent History Endocrine Medical History: No Pertinent History Musculoskeletal History: Fibromyalgia GI Medical History: Ulcer History: No Pertinent History Psycho-Social History: No Pertinent History Female Reproductive Disorders: No Pertinent History Other Medical History: ulcer, neuropathy - Past Surgical History Past Surgical History: Yes Neuro Surgical History: No Pertinent History Cardiac: No Pertinent History Respiratory: No Pertinent History Gastrointestinal: Cholecystectomy Genitourinary: No Pertinent History Musculoskeletal: No Pertinent History Female Surgical History: Section Other Surgical History: EGD X [address] King Eduardo - Social History Smoking Status: Never smoker Exposure to second hand smoke: No Drug Use: none Patient Lives Alone: No - Female History Hx Now: No <WALI DRUMMONDMIR - Last Filed: 03/18/21 18:52> - Physical Exam General Appearance: no apparent distress, alert Eye Exam: PERRL/EOMI Ears, Nose, Throat Exam: normal ENT inspection, pharynx normal Neck Exam: normal inspection, supple, full range of motion Respiratory Exam: normal breath sounds, lungs clear Cardiovascular Exam: regular rate/rhythm, normal heart sounds Gastrointestinal/Abdomen Exam: soft, tenderness (Bilateral lower abdominal), guarding (Lower abdomen), No normal bowel sounds (Hypoactive), No rebound Back Exam: normal inspection, normal range of motion, No CVA tenderness Extremity Exam: normal inspection, normal range of motion Neurologic Exam: alert, oriented x 3, cooperative Skin Exam: normal color SpO2 Interpretation: normal SpO2: 100 O2 Delivery: Room Air <BHANU,BRANDI - Last Filed: 03/18/21 18:52> - Nursing Vital Signs Nursing Vital Signs: Initial Vital Signs Temperature 98.3 F 03/18/21 18:03 Pulse Rate 101 H 03/18/21 18:03 Respiratory Rate 18 03/18/21 18:03 Blood Pressure 104/74 03/18/21 18:03 O2 Sat by Pulse Oximetry 100 03/18/21 18:03 Pain Scale Pain Intensity 5 Ordered Tests: Active Orders 24 hr Category Date Time Status IV Insertion STAT Care 03/18/21 18:18 Active NPO (ED) STAT Care 03/18/21 18:18 Active ABDOMEN AND PELVIS W CONTRAST [CT] Stat Exams 03/18/21 18:18 Taken CBC W DIFF Stat Lab 03/18/21 18:22 Completed CMP Stat Lab 03/18/21 18:22 Completed CULTURE,URINE Stat Lab 03/18/21 18:22 Received LIPASE Stat Lab 03/18/21 18:22 Completed UA W/RFX UR CULTURE Stat Lab 03/18/21 18:22 Completed Medication Summary Discontinued Medications Generic Name Dose Route Start Last Admin Trade Name Freq PRN Reason Stop Dose Admin Sodium Chloride 1,000 mls @ 999 mls/hr 03/18/21 18:18 03/18/21 19:47 Sodium Chloride 0.9% 1000 Ml IV 03/18/21 19:18 Infused .Q1H1M STA Infusion Sodium Chloride Confirm 03/18/21 18:23 Sodium Chloride 0.9% 1000 Ml Administered 03/18/21 18:24 Dose 1,000 mls @ ud .ROUTE .STK-MED ONE Ceftriaxone Sodium/Dextrose 1 g in 50 mls @ 100 mls/hr 03/18/21 20:01 03/18/21 20:40 Rocephin 1 Gm-D5w 50 Ml Bag IV 03/18/21 20:30 100 mls/hr STAT STA 100 mls/hr Administration Ceftriaxone Sodium/Dextrose Confirm 03/18/21 20:39 Rocephin 1 Gm-D5w 50 Ml Bag Administered 03/18/21 20:40 Dose 1 g in 50 mls @ ud IV .STK-MED ONE Morphine Sulfate 4 mg 03/18/21 18:18 03/18/21 18:25 Morphine Sulfate 4 Mg/Ml Injection IV 03/18/21 18:19 4 mg STAT ONE Administration Morphine Sulfate Confirm 03/18/21 18:23 Morphine Sulfate 4 Mg/Ml Injection Administered 03/18/21 18:24 Dose 4 mg .ROUTE .STK-MED ONE Morphine Sulfate 4 mg 03/18/21 20:49 03/18/21 20:51 Morphine Sulfate 4 Mg/Ml Injection IV 03/18/21 20:50 4 mg STAT ONE Administration Morphine Sulfate Confirm 03/18/21 20:50 Morphine Sulfate 4 Mg/Ml Injection Administered 03/18/21 20:51 Dose 4 mg .ROUTE .STK-MED ONE Ondansetron HCl 4 mg 03/18/21 18:18 03/18/21 18:25 Ondansetron Hcl 4 Mg/2 Ml Vial IV 03/18/21 18:19 4 mg STAT ONE Administration Ondansetron HCl Confirm 03/18/21 18:23 Ondansetron Hcl 4 Mg/2 Ml Vial Administered 03/18/21 18:24 Dose 4 mg .ROUTE .STK-MED ONE Lab/Rad Data: Laboratory Result Diagrams 03/18/21 18:22 03/18/21 18:22 Laboratory Results 03/18/21 03/18/2121 Range/Units 18:22 18:22 18:22 WBC 10.0 (4.0-10.5) K/mm3 RBC 3.59 L (4.1-5.4) M/mm3 Hgb 11.1 L (12.0-16.0) gm/dl Hct 35.6 (35-47) % MCV 99.2 (78-100) fl MCH 30.9 (26-32) pg MCHC 31.2 L (32-36) g/dl RDW 12.5 (11.5-14.0) % Plt Count 274 (150-450) K/mm3 MPV 9.2 (7.5-11.0) fl Gran % 80.5 H (36.0-66.0) % Eos # (Auto) 0.08 (0-0.5) Absolute Lymphs (auto) 1.25 (1.0-4.6) Absolute Monos (auto) 0.60 (0.0-1.3) Lymphocytes % 12.6 L (24.0-44.0) % Monocytes % 6.0 (0.0-12.0) % Eosinophils % 0.8 (0.00-5.0) % Basophils % 0.1 (0.0-0.4) % Absolute Granulocytes 8.01 H (1.4-6.9) Basophils # 0.01 (0-0.4) Sodium 136 L (137-145) mmol/L Potassium 3.9 (3.5-5.1) mmol/L Chloride 104 (98-107) mmol/L Carbon Dioxide 24 (22-30) mmol/L Anion Gap 12.0 (5-15) MEQ/L BUN 13 (7-17) mg/dL Creatinine 0.55 (0.52-1.04) mg/dL Estimated GFR > 60.0 ML/MIN Glucose 87 (74-106) mg/dL Calcium 8.9 (8.4-10.2) mg/dL Total Bilirubin 0.70 (0.2-1.3) mg/dL AST 19 (14-36) U/L ALT 13 (0-35) U/L Alkaline Phosphatase 81 (38-126) U/L Serum Total Protein 6.3 (6.3-8.2) g/dL Albumin 3.5 (3.5-5.0) g/dL Lipase 24 (23-300) U/L Urine Color YELLOW (YELLOW) Urine Appearance CLOUDY (CLEAR) Urine pH 5.0 (5-6) Ur Specific [place] 1.016 (1.005-1.025) Urine Protein 30 (Negative) Urine Ketones NEGATIVE (NEGATIVE) Urine Blood SMALL (0-5) Clarence/ul Urine Nitrite NEGATIVE (NEGATIVE) Urine Bilirubin NEGATIVE (NEGATIVE) Urine Urobilinogen NEGATIVE (0-1) mg/dL Ur Leukocyte Esterase LARGE (NEGATIVE) Urine WBC (Auto) 51-100 (0-5) /HPF Urine RBC (Auto) 3-5 (0-2) /HPF U Epithel Cells (Auto) MANY (FEW) /HPF Urine Bacteria (Auto) FEW (NEGATIVE) /HPF Urine Mucus (Auto) SLIGHT (NEGATIVE) /HPF Urine Culture Reflexed YES (NO) Urine Glucose NEGATIVE (NEGATIVE) mg/dL <BRANDI DRUMMOND - Last Filed: 03/18/21 18:52> - Progress Counseled pt/family regarding: lab results, diagnosis, need for follow-up, rad results <DARRYL NOLASCO - Last Filed: 03/18/21 21:07> - Progress Progress Note: 03/18/21 18:53 She is given fluids, pain medication for symptomatic relief. Work-up is pending, care is transferred to Dr. Nolasco at shift change for reevaluation and final disposition. (BRANDI DRUMMOND) 03/18/21 21:07 CAT scan of the abdomen pelvis shows no acute intrapelvic or intra-abdominal abnormalities. There is some dilated intrahepatic ducts. The patient is status post cholecystectomy. There is also air-fluid level in the colon. This may be caused by ileus secondary to the patient's urinary tract infection. (DARRYL NOLASCO) <BRANDI DRUMMOND - Last Filed: 03/18/21 18:52> - Departure Departure Disposition: Home Critical Care Time: No <DARRYL NOLASCO - Last Filed: 03/18/21 21:07> - Departure Clinical Impression: UTI (urinary tract infection) Condition: Stable Referrals: LORIN FREEMAN [Primary Care Provider] - Follow up/PCP as directed Additional Instructions: Drink plenty of fluids. Take your medication as prescribed. Follow-up with your primary care physician for further management Prescriptions: Ciprofloxacin [Cipro 500 MG] 500 mg PO BID #14 tablet
[2021-03-18 18:56] LABS: ALBUMIN 3.5 g/dL (3.5-5.0); ALKALINE PHOSPHATASE 81 U/L (38-126); BLOOD UREA NITROGEN 13 mg/dL (7-17); CHLORIDE 104 mmol/L (98-107); Calcium 8.9 mg/dL (8.4-10.2); Carbon Dioxide 24 mmol/L (22-30); Creatinine 1 0.55 mg/dL (0.52-1.04); EST GLOMERULAR FILTRATION RATE > 60.0 ML/MIN; Glucose 87 mg/dL (74-106); LIPASE 24 U/L (23-300); Potassium 3.9 mmol/L (3.5-5.1); SGOT/AST 19 U/L (14-36); SGPT/ALT 13 U/L (0-35); SODIUM 136 mmol/L (137-145); Total Protein 6.3 g/dL (6.3-8.2)
[2021-03-18] MEDS ORDERED: ROCEPHIN 1 Gm-D5w 50 ml Bag** 1 G/50 ML IVPB IV ONE (20:39)
[2021-03-18] MEDS: ROCEPHIN 1 Gm-D5w 50 ml Bag** 1 G/50 ML IVPB IV STA (20:40)
--- NOTE | 2021-03-19 08:45 | XRAY ---
Indication: Abdomen pain and nausea. UTI. Multiple contiguous axial images obtained through the abdomen and pelvis using 100 cc Isovue 370 contrast. Comparison: None Lung bases demonstrates moderate dependent atelectasis. Heart not enlarged. Noncontrasted stomach and bowel loops are nonobstructed. Appendix not seen. Ascending and transverse colon mildly fluid distended with fluid leveling favoring diarrhea. Previous cholecystectomy with mild biliary prominence. No free fluid/air. Remaining liver, pancreas, spleen, adrenal glands, kidneys, ureters, bladder, uterus, and aorta are unremarkable. No pathologic retroperitoneal lymphadenopathy. Osseous structures intact. Impression: 1. Mild fluid distended colon with fluid leveling favoring diarrhea. 2. Mild biliary prominence, not unusual for cholecystectomy. 3. Remaining CT abdomen/pelvis with contrast exam is negative. Comment: Preliminary interpretation made by C. No critical discrepancy.
[2021-03-19 17:08] VITALS: BP 111/74; PULSE 101; O2SAT 100
== END 2021-03-18 21:17 | disposition home or self-care (01) ==
LOC: ED 17:33
DX: N39.0 Urinary tract infection, site not specified (principal); R19.7 Diarrhea, unspecified; Z79.899 Other long term (current) drug therapy
CPT/HCPCS: 36000; 36415; 74177; 80053; 81001; 83690; 85025; 87086; 96360; 96374; 96376; 99284; J0696; J2270; J2405

== ENCOUNTER 2025-01-19 20:42 | Emergency (ER) | payer OTHER ==
[2025-01-19 20:59] VITALS: RESP 18; TEMP 97.1
--- NOTE | 2025-01-19 21:15 | ERPHSYRPT ---
- History of Present Illness Time Seen by Provider: 01/19/25 21:00 Source: patient Patient Subjective Stated Complaint: pt states that she has been having jaw pain for the past couple of weeks Triage Nursing Assessment: pt ambulated into the er; pt is axo x4; c/o jaw pain; pt states 6/10 pain to lower jaw; pt is talking in full sentences with no distress; skin PDW; vitals wnl Physician History: 59-year-old female with history of fibromyalgia, opiate overdose, neuropathy who presents with 3 weeks of pain over the left side of her face. She reports the pain seems to be in the region around her jaw and upper maxilla. She had no fever or chills. She has no neurologic symptoms such as headache weakness numbness ataxia difficulty swallowing or neurologic symptoms. She has noted no hearing or visual changes. She states that she has a fractured tooth top of her mouth on the left side has been there several months. Scribes the symptoms for 2 to 3 weeks not necessarily worse at night. Had no adenopathy. Taken no medication for the symptoms. No recent illness. Has not take any medication for the symptoms Of note the patient reports that she took her blood pressure medication earlier today. She is not dizzy. She had no symptoms of infection. Blood pressure 98/64 she is asymptomatic. She is not tachycardic. Allergies/Adverse Reactions: No Known Drug Allergies Allergy (Verified 01/19/25 20:47) Home Medications: Levothyroxine Sodium 50 mcg PO DAILY 01/19/25 [History] Lisinopril 20 mg [Zestril 20 MG] 20 mg PO DAILY 01/19/25 [History] Progesterone, Micronized [Progesterone] 100 mg PO HS 01/19/25 [History] cloNIDine HCL [Clonidine HCl ER] 0.1 mg PO BID 01/19/25 [History] estradioL [Estradiol (Once Weekly)] 1 each TD WEEKLY 01/19/25 [History] Hx Tetanus, Diphtheria Vaccination/Date Given: Yes Hx Influenza Vaccination/Date Given: No Hx Pneumococcal Vaccination/Date Given: No Travel Risk - International Travel Have you traveled outside of the country in past 3 weeks: No - Emerging Infectious Disease Are you exhibiting symptoms associated with any current EIDs: No - Review of Systems Constitutional: No Fever, No Chills Eyes: No Symptoms Ears, Nose, & Throat: No Symptoms, No Ear Pain, No Hearing Changes, No Tinnitus, No Nose Pain, No Nose Congestion, No Mouth Swelling, No Loose Teeth, No Throat Pain, No Throat Swelling, No Hoarse, No Painful Swallowing Respiratory: No Cough, No Dyspnea Cardiac: No Chest Pain, No Edema, No Syncope Abdominal/Gastrointestinal: No Abdominal Pain, No Nausea, No Vomiting, No Diarrhea Genitourinary Symptoms: No Dysuria Musculoskeletal: No Back Pain, No Neck Pain Skin: No Rash Neurological: No Dizziness, No Focal Weakness, No Sensory Changes Psychological: No Symptoms Endocrine: No Symptoms All Other Systems: Reviewed and Negative - Past Medical History Pertinent Past Medical History: Yes (fibrolmyalgia, neuropathy, peptic ulcers) Neurological History: No Pertinent History ENT History: No Pertinent History Cardiac History: No Pertinent History Respiratory History: No Pertinent History Endocrine Medical History: No Pertinent History Musculoskeletal History: Fibromyalgia GI Medical History: Ulcer History: No Pertinent History Psycho-Social History: No Pertinent History Female Reproductive Disorders: No Pertinent History Other Medical History: ulcer, neuropathy - Past Surgical History Past Surgical History: Yes Neuro Surgical History: No Pertinent History Cardiac: No Pertinent History Respiratory: No Pertinent History Gastrointestinal: Cholecystectomy Genitourinary: No Pertinent History Musculoskeletal: No Pertinent History Female Surgical History: Section Other Surgical History: EGD X [address] King Eduardo - Social History Smoking Status: Never smoker Exposure to second hand smoke: No Drug Use: none - Social Determinants of Health Will the patient participate in the screening: Declined to provide - Nursing Vital Signs Nursing Vital Signs: Initial Vital Signs Temperature 97.1 F 01/19/25 20:51 Pulse Rate 67 01/19/25 20:51 Respiratory Rate 18 01/19/25 20:51 Blood Pressure 93/61 01/19/25 20:51 O2 Sat by Pulse Oximetry 99 01/19/25 20:51 Pain Scale Pain Intensity [Upper Jaw] 6 Pain Intensity 6 - Physical Exam General Appearance: no apparent distress, alert Eye Exam: PERRL/EOMI, eyes nml inspection Ears, Nose, Throat Exam: normal ENT inspection, TMs normal, pharynx normal, moist mucous membranes, other (Patient has no facial swelling or redness. Cranial nerves intact. She has a broken left upper molar. She has some local tenderness but no swelling or redness around the left maxilla and the left mandible. Cranial nerves are intact and normal.) Neck Exam: normal inspection, supple, full range of motion, No lymphadenopathy, No midline tenderness, No thyromegaly Respiratory Exam: normal breath sounds, lungs clear, No respiratory distress Cardiovascular Exam: regular rate/rhythm, normal heart sounds, normal peripheral pulses Gastrointestinal/Abdomen Exam: soft, normal bowel sounds, No tenderness, No mass Back Exam: normal inspection, normal range of motion, No CVA tenderness, No vertebral tenderness Extremity Exam: normal inspection, normal range of motion, pelvis stable Neurologic Exam: alert, oriented x 3, cooperative, normal mood/affect, nml cerebellar function, nml station & gait, sensation nml, No motor deficits, No motor weakness, No facial droop, No slurred speech, No dysarthria, No abnormal cerebellar tests, No abnormal printed circuit boards router II-XII, No EOM palsy Skin Exam: normal color, warm, dry, No rash Lymphatic Exam: No adenopathy SpO2 Interpretation: normal SpO2: 99 - Progress Progress: unchanged Progress Note: 01/19/25 21:12 Patient is a 59-year-old male who presents with 3 weeks of left-sided jaw and maxillary facial pain. No neurologic symptoms or findings. She has a broken 4 left upper molar molar. No dental abscess. Normal neuroexam. Somewhat unclear etiology of the patient's symptoms. Does not clearly represent trigeminal neura lgia. She does have a fractured tooth that is somewhat tender left upper jaw. Discussed with her the normal neuroexam. She would get checked for her diabetes. Checked blood sugar that showed 99 Discussed her blood pressure. She is on several blood pressure meds but she has not been checking her blood pressure at home. She has no signs of action and she is not tachycardic. Discussed with her that she needs to monitor home blood pressure because it tells that she is taking her clonidine very times a day. She reports that she can do this as a way to check it at home and to follow-up with her primary care doc she is a reasonable option given the fact that she is asymptomatic. Start her on an antibiotic to cover for any dental infection. Discussed the use of NSAIDs. You to follow-up with her provider this week and return for any worsening symptoms or concerns - Departure Departure Disposition: Home Clinical Impression: Facial pain Condition: Stable Critical Care Time: No Referrals: DONN STANLEY MD [Primary Care Provider, [facility]] - Follow up/PCP as directed Instructions: Fractured Tooth Additional Instructions: He is being started on an antibiotic for your dental fracture. There is no concerning cause seen in your exam for the pain in your face other than your tooth. You should take ibuprofen for discomfort and start the antibiotic. If your symptoms do not resolve this week she should follow with your primary doctor. You need to monitor your blood pressure daily. Should hold your clonidine dosing tonight. If you have any further low blood pressures or diz ziness at home should contact your doctor immediately or return for recheck Prescriptions: Penicillin V Potassium 500 mg PO QID 7 Days #28 tablet
[2025-01-19 21:27] VITALS: BP 89/56; PULSE 70; O2SAT 97
== END 2025-01-19 21:31 | disposition home or self-care (01) ==
LOC: ED 20:42
DX: R51.9 Headache, unspecified (principal); Z79.899 Other long term (current) drug therapy